=== PATIENT | male | born 1990 | race Caucasian/White ===

== ENCOUNTER 2017-05-24 14:54 | Outpatient (CLI) | payer MEDICAID, OTHER ==
[~2017-05-24 14:54] MED LIST: CYCL-1 PO; DIAZ-351 PO; HYDR-569 PO; IBUP-1986 PO; NO HOME MEDS; OXYC-145 PO
== END 2017-05-24 23:59 | disposition home or self-care (01) ==
LOC: CARD DIAG 14:54
PROVIDERS: ATTEND Nurse Practitioner Family
DX: I49.9 Cardiac arrhythmia, unspecified (principal); R46.89 Other symptoms and signs involving appearance and behavior
CPT/HCPCS: 93306

== ENCOUNTER 2018-07-14 16:25 | Emergency (ER) | payer MEDICAID ==
[~2018-07-14] VITALS: Ht 185.4 cm; Wt 131.0 kg
[~2018-07-14 16:25] MED LIST changes: +HYDR-4383 PO; -HYDR-569 PO
[2018-07-14 16:34] VITALS: BP 161/100
[2018-07-14] MEDS ORDERED: dexamethasone sod phosphate 10mg/ml inj PO STA (16:39)
[2018-07-14] MEDS ORDERED: ondansetron 4mg rapidly disintigrating tab PO ONE (16:40)
[2018-07-14] MEDS ORDERED: PENI250T2 PO (16:44)
== END 2018-07-14 17:38 | disposition home or self-care (01) ==
LOC: ER 16:25
DX: J02.0 Streptococcal pharyngitis (principal); J45.909 Unspecified asthma, uncomplicated; G89.29 Other chronic pain; F17.200 Nicotine dependence, unspecified, uncomplicated; F12.90 Cannabis use, unspecified, uncomplicated
CPT/HCPCS: 87880; 99283; J1100

== ENCOUNTER 2018-11-26 13:56 | Emergency (ER) | payer MEDICAID ==
[~2018-11-26] VITALS: Ht 185.4 cm; Wt 132.3 kg
[2018-11-26 14:11] VITALS: BP 152/87
[2018-11-26] MEDS ORDERED: IBUP-1986 PO (14:18)
[2018-11-26] MEDS ORDERED: ORPH100T2 PO (14:18)
[2018-11-26] MEDS ORDERED: HYDR-4353 PO (14:18)
[2018-11-26] MEDS ORDERED: ketorolac trometh inj. 60 MG/2 ML VIAL IM ONE (14:20)
== END 2018-11-26 14:48 | disposition home or self-care (01) ==
LOC: ER 13:56
DX: S39.012A Strain of muscle, fascia and tendon of lower back, initial encounter (principal); J45.909 Unspecified asthma, uncomplicated; G89.29 Other chronic pain; F12.90 Cannabis use, unspecified, uncomplicated; Z72.0 Tobacco use; Z79.899 Other long term (current) drug therapy; X50.0XXA Overexertion from strenuous movement or load, initial encounter; Y93.89 Activity, other specified; Y92.89 Other specified places as the place of occurrence of the external cause; Y99.8 Other external cause status
CPT/HCPCS: 96372; 99283; J1885

== ENCOUNTER 2019-03-12 14:11 | Emergency (ER) | payer MEDICAID ==
[~2019-03-12] VITALS: Ht 188 cm; Wt 140.0 kg
[~2019-03-12 14:11] MED LIST changes: +ORPH100T2 PO
[2019-03-12] MEDS ORDERED: AMOX500C2 PO (14:58)
[2019-03-12] MEDS ORDERED: amoxicillin 250mg capsule PO ONE (15:00)
[2019-03-12] MEDS ORDERED: ibuprofen tablet 400 MG TABLET PO ONE (15:00)
[2019-03-12] MEDS ORDERED: acetaminophen 325mg tablet PO ONE (15:00)
[2019-03-12 15:17] VITALS: BP 142/79
== END 2019-03-12 15:15 | disposition home or self-care (01) ==
LOC: ER 14:12
DX: K08.89 Other specified disorders of teeth and supporting structures (principal); R22.0 Localized swelling, mass and lump, head; K03.81 Cracked tooth; J45.909 Unspecified asthma, uncomplicated; G89.29 Other chronic pain; F12.90 Cannabis use, unspecified, uncomplicated; Z79.2 Long term (current) use of antibiotics; Z79.899 Other long term (current) drug therapy
CPT/HCPCS: 99284

== ENCOUNTER 2019-05-28 19:19 | Emergency (ER) | payer MEDICAID ==
[~2019-05-28] VITALS: Ht 185.4 cm; Wt 137.3 kg
[2019-05-28 19:24] VITALS: BP 170/94
[2019-05-28] MEDS ORDERED: ketorolac tromethamine 15mg/ml inj. IM ONE (20:05)
[2019-05-28] MEDS ORDERED: orphenadrine citrate 60mg/2ml inj. IM ONE (20:05)
[2019-05-28] MEDS ORDERED: IBUP-1984 PO (20:31)
[2019-05-28] MEDS ORDERED: ORPH100T2 PO (20:31)
== END 2019-05-28 20:38 | disposition home or self-care (01) ==
LOC: ER 19:19
DX: M54.5 Low back pain (principal); G89.29 Other chronic pain; J45.909 Unspecified asthma, uncomplicated; F12.90 Cannabis use, unspecified, uncomplicated; Z72.89 Other problems related to lifestyle; Z79.899 Other long term (current) drug therapy
CPT/HCPCS: 96372; 99284; J1885; J2360